=== PATIENT | female | born 1995 | race Caucasian/White ===

== ENCOUNTER 2017-12-09 11:26 | Emergency (ER) | payer BC, OTHER ==
--- NOTE | 2017-12-09 13:11 | EDPHY ---
H & P Stated Complaint: 5 days bilat tingling/numbness all extremities/?mosquito exposure Time Seen by Provider: 12/09/17 12:52 HPI/ROS: CHIEF COMPLAINT: Paresthesias HISTORY OF PRESENT ILLNESS: The patient presents the ED with complaints of intermittent bilateral paresthesias to her hands and feet over the past 5 days. Patient denies any fever, headache, numbness, vision changes, weakness, travel outside the [place], medication changes or dietary changes. The patient was seen at the [facility] earlier in the week and had an unremarkable CBC, basic metabolic panel, TSH and vitamin D level. The patient endorses no symptoms of prior neurologic symptoms. The patient has no significant past medical history. She denies additional acute complaints. REVIEW OF SYSTEMS: A comprehensive 10 point review of systems is otherwise negative aside from elements mentioned in the history of present illness. Source: Patient Exam Limitations: No limitations - Personal History LMP (Females 10-55): IUD In Place Current Tetanus/Diphtheria Vaccine: Yes - Medical/Surgical History Hx Asthma: No Hx Chronic Respiratory Disease: No Hx Diabetes: No Hx Cardiac Disease: No Hx Renal Disease: No Hx Cirrhosis: No Hx Alcoholism: No Hx HIV/AIDS: No Hx Splenectomy or Spleen Trauma: No Other PMH: denies - Social History Smoking Status: Never smoked - Physical Exam Exam: General Appearance: Alert, no distress Eyes: Pupils equal and round no pallor or injection ENT, Mouth: Mucous membranes moist Respiratory: There are no retractions, lungs are clear to auscultation Cardiovascular: Regular rate and rhythm Gastrointestinal: Abdomen is soft and nontender, no masses, bowel sounds normal Neurological: Sensation intact to light touch all 4 extremities although patient reports that she objectively it feels decreased in her arms and legs. The patient is noted to have 5/5 strength in all 4 extremities, cranial nerves 2 -12 are intact. Skin: Warm and dry, no rashes Musculoskeletal: Neck is supple nontender Extremities: symmetrical, full range of motion Constitutional: Initial Vital Signs Temperature (C) 36.4 C 12/09/17 11:30 Heart Rate 60 12/09/17 11:30 Respiratory Rate 18 12/09/17 11:30 Blood Pressure 97/61 L 12/09/17 11:30 O2 Sat (%) 97 12/09/17 11:30 O2 Delivery Mode Room Air Allergies/Adverse Reactions: No Known Allergies Allergy (Unverified 12/09/17 11:29) Home Medications: Medication Instructions Recorded Jolanta 12/09/17 Medical Decision Making ED Course/Re-evaluation: The patient presents to the ED with vague bilateral intermittent peripheral paresthesias for the past 5 days. I find her neurologic examination to be unremarkable aside from subjectively decreased sensory symptoms. The patient has no meningeal symptoms. She has no complaints of headache. The patient is not had any prior history of neurologic disease and her symptoms today would not be consistent with a presentation of acute MS. At this point time I do feel the patient can observe her symptoms this weekend. She has been instructed to return to the ED for any headache, fever, weakness , vision changes or progressive neurologic symptoms. The patient has been instructed to follow up with our on-call neurologist for any symptoms which persist next week. Departure - Departure Disposition: Home, Routine, Self-Care Clinical Impression: Paresthesias Condition: Good Instructions: Paresthesia (ED) Additional Instructions: 1. Please return to the ED this weekend for any fever, headache, weakness, vision changes or other concerns. 2. Please follow up with a neurologist you have been referred to next week for any ongoing symptoms of tingling. Referrals: Luke Way DO [Medical Doctor] - As per Instructions
[2017-12-09 13:34] VITALS: BP 115/62
== END 2017-12-09 13:32 | disposition home or self-care (01) ==
DX: R20.2 Paresthesia of skin (principal)